=== PATIENT | male | born 1975 | race Caucasian/White ===

== ENCOUNTER 2017-05-26 09:50 | Inpatient (IN) | payer OTHER ==
[~2017-05-26] VITALS: Ht 182.9 cm; Wt 98.8 kg
[2017-05-26 10:20] LABS: BASOPHILS % (AUTO) 0.2 % (0-1); EOSINOPHILS # (AUTO) 0.2 X10'3 (0-0.9); EOSINOPHILS % (AUTO) 2.3 % (0-6); LYMPHOCYTES # (AUTO) 1.3 X10'3 (1.1-4.8); LYMPHOCYTES % (AUTO) 14.6 % (21-51); MEAN CORPUSCULAR HEMOGLOBIN 30.7 PG (27.0-31.0); MEAN CORPUSCULAR HGB CONC 34.3 % (33.0-36.5); MEAN CORPUSCULAR VOLUME 89.7 FL (78-98); MEAN PLATELET VOLUME 8.9 FL (7.4-10.4); MONOCYTES # (AUTO) 0.7 X10'3 (0-0.9); MONOCYTES % (AUTO) 8.1 % (2-12); NEUTROPHILS # (AUTO) 6.8 X10'3 (1.8-7.7); NEUTROPHILS % (AUTO) 74.8 % (42-75); PRE OP HEMOGLOBIN 17.1 g/dL (14.0-17.9); PRE OP PLATELET COUNT 207 X10'3 (140-440); RED BLOOD COUNT 5.58 X10'6 (4.70-6.10)
[2017-05-26 10:30] LABS: PRE OP INR 0.9 INR; PRE OP PROTIME 9.8 SECONDS (9.0-12.0)
[2017-05-26 10:32] LABS: CLARITY,URINE CLEAR (Clear); COLOR,URINE YELLOW (Yellow); GLUCOSE, URINE NEGATIVE (Neg); KETONES,URINE NEGATIVE (Neg); LEUKOCYTE ESTERASE ,URINE NEGATIVE (Neg); NITRITES, URINE NEGATIVE (Neg); OCCULT BLOOD,URINE NEGATIVE (Neg); PROTEIN,URINE NEGATIVE (Neg); UROBILINOGEN,URINE 0.2 E.U/dL (0.2-1.0)
[2017-05-26 10:36] LABS: UA COLLECTION TYPE NON-SPECIFIED
[2017-05-26 10:37] LABS: ALBUMIN 4.1 G/DL (3.4-5.0); ALKALINE PHOSPHATASE 78 IU/L (46-116); BLOOD UREA NITROGEN 13 MG/DL (7-18); BUN/CREATININE RATIO 12.9 (5.4-32.0); CALCIUM 9.1 MG/DL (8.5-10.1); CHLORIDE 106 MMOL/L (99-107); CREATININE 1.01 MG/DL (0.60-1.10); PRE OP ANION GAP 12 (8-16); PRE OP AST 28 U/L (10-37); PRE OP BILIRUB, TOTAL 0.5 MG/DL (0.0-1.0); PRE OP GLUCOSE 96 MG/DL (70-104); PRE OP POTASSIUM 3.9 MMOL/L (3.4-5.1); PRE OP SODIUM 143 MMOL/L (135-145); TOTAL CARBON DIOXIDE 25.3 MMOL/L (24-32); TOTAL PROTEIN 8.2 G/DL (6.4-8.2); eGFR 81 ML/MIN
[2017-05-26 10:39] LABS: PRE OP ALT 86 U/L (30-65)
[2017-05-26] MEDS ORDERED: HYDR-3972 PO (13:51)
[2017-05-26] MEDS ORDERED: ALBU8.5H8 INH (13:51)
[2017-06-05] VITALS (19 sets, daily range): BP systolic 90–142; BP diastolic 47–88
[2017-06-05] MEDS ORDERED: ringers solution, lacted 1,000 ML IV SCH ×2 (05:00→08:28)
[2017-06-05] MEDS ORDERED: cefazolin/dext.iso 2gm/50ml 50 ML IV ONE (05:30)
[2017-06-05] MEDS ORDERED: celeCOXIB 100mg capsule PO ONE ×2 (05:30→06:10)
[2017-06-05] MEDS ORDERED: albuterol 2.5 MG/3 ML nebule NEB ONE (05:30)
[2017-06-05] MEDS ORDERED: metoclopramide 5 mg/ml inj IV ONE (05:30)
[2017-06-05] MEDS ORDERED: oxyCODONE SR 10mg (sust. release) tab PO ONE (05:30)
[2017-06-05] MEDS ORDERED: acetaminophen 325mg tablet PO ONE (05:30)
[2017-06-05] MEDS ORDERED: tranexamic acid inj. 1,000 MG in normal saline 100ml IV soln 90 ML IV ONE (05:30)
[2017-06-05] MEDS ORDERED: gabapentin 300mg capsule PO ONE (05:30)
[2017-06-05] MEDS ORDERED: famotidine 20mg tablet PO ONE (05:30)
[2017-06-05] MEDS ORDERED: vancomycin inj 1,500 MG in normal saline 300ml IV soln IV ONE (05:30)
[2017-06-05] MEDS ORDERED: LIDOcaine 1% (10mg/ml) 2ml vial ONE (06:10)
[2017-06-05] MEDS ORDERED: epiNEPHrine 1 mg/ml inj ONE (06:52)
[2017-06-05] MEDS ORDERED: ketorolac trometh. 30mg/ml inj. ONE (06:52)
[2017-06-05] MEDS ORDERED: cloNIDine hcl/PF 100mcg/ml inj ONE (06:52)
[2017-06-05] MEDS ORDERED: ROPIVAcaine 0.5% (5mg/ml) 30ml vial ONE ×2 (06:52→07:41)
[2017-06-05] MEDS ORDERED: vancomycin 1,000mg inj ONE (06:52)
[2017-06-05] MEDS ORDERED: bisacodyl 10mg suppository rectal RC PRN (07:10)
[2017-06-05] MEDS ORDERED: diphenhydrAMINE 25mg capsule PO PRN ×2 (07:10)
[2017-06-05] MEDS ORDERED: ondansetron/PF 4mg/2ml inj IV PRN ×3 (07:10→09:55)
[2017-06-05] MEDS ORDERED: acetaminophen 325mg tablet PO PRN (07:10)
[2017-06-05] MEDS ORDERED: albuterol 2.5 MG/3 ML nebule NEB PRN (07:15)
[2017-06-05] MEDS ORDERED: fentaNYL/PF 50MCG/1 ML 2ML syringe ONE (07:16)
[2017-06-05] MEDS ORDERED: MIDAZolam 1mg/ml 10ml vial ONE (07:16)
[2017-06-05] MEDS ORDERED: morphine /PF 1mg/ml 10ml inj. ONE (07:23)
[2017-06-05] MEDS ORDERED: oxyCODONE/APAP 10/325mg tablet PO SCH (08:00)
[2017-06-05] MEDS ORDERED: cefazolin/dext.iso 2gm/50ml 50 ML IV SCH (08:00)
[2017-06-05] MEDS ORDERED: morphine 4 MG/ML inj SYRINge IV PRN ×2 (08:30)
[2017-06-05] MEDS ORDERED: proCHLORperazine 10 MG/2 ml inj IV PRN (08:30)
[2017-06-05] MEDS ORDERED: meperidine/PF 50mg/ml syringe IV PRN ×3 (08:30)
[2017-06-05] MEDS ORDERED: naloxone 2mg/2ml inj 2 MG in normal saline 500ml IV soln 500 ML IV PRN (09:54)
[2017-06-05] MEDS ORDERED: diphenhydrAMINE 50 mg/ml inj IV PRN (09:55)
[2017-06-05] MEDS: gabapentin 300mg capsule PO SCH ×3 (11:26→20:45)
[2017-06-05] MEDS: ascorbic acid 500mg tablet PO SCH ×2 (11:26→20:45)
[2017-06-05] MEDS: multivitamins, therapeutics tablet PO SCH (11:26)
[2017-06-05] MEDS: aspirin 325mg tablet PO SCH (11:27)
[2017-06-05] MEDS ORDERED: ceFAZolin inj. 2,000 MG in dextrose 5%-water 50 ML IV SCH (12:14)
[2017-06-05] MEDS: ceFAZolin inj. 2,000 MG in dextrose 5%-water 100 ML IV SCH ×2 (15:48→23:51)
[2017-06-05] MEDS: potassium cl 20mEq in 1/2 NS 1,000 ML IV SCH ×3 (15:48→23:06)
[2017-06-05] MEDS: oxyCODONE/APAP 10/325mg tablet PO PRN ×2 (16:38→20:48)
[2017-06-05] MEDS: sennosides 8.6mg tablet PO SCH (20:45)
[2017-06-05] MEDS: MORPHINE 2MG in 2ml NS syringe IV PRN (23:51)
[2017-06-06] MEDS: oxyCODONE/APAP 10/325mg tablet PO PRN ×7 (03:42→23:35)
[2017-06-06 05:11] LABS: BASOPHILS % (AUTO) 0.2 % (0-1); EOSINOPHILS # (AUTO) 0.2 X10'3 (0-0.9); EOSINOPHILS % (AUTO) 1.7 % (0-6); HEMATOCRIT 40.7 % (42.0-52.0); HEMOGLOBIN 14.1 g/dl (14.0-17.9); LYMPHOCYTES # (AUTO) 1.3 X10'3 (1.1-4.8); MEAN CORPUSCULAR HEMOGLOBIN 31.3 PG (27.0-31.0); MEAN CORPUSCULAR HGB CONC 34.7 % (33.0-36.5); MEAN CORPUSCULAR VOLUME 90.3 FL (78-98); MEAN PLATELET VOLUME 8.9 FL (7.4-10.4); MONOCYTES # (AUTO) 0.7 X10'3 (0-0.9); MONOCYTES % (AUTO) 6.3 % (2-12); NEUTROPHILS # (AUTO) 8.2 X10'3 (1.8-7.7); NEUTROPHILS % (AUTO) 78.8 % (42-75); PLATELET COUNT 163 X10'3 (140-440); RED BLOOD COUNT 4.51 X10'6 (4.70-6.10); RED CELL DISTRIBUTION WIDTH 13.8 % (11.5-14.5); WHITE BLOOD COUNT 10.4 X10'3 (4.5-11.0)
[2017-06-06] MEDS: MORPHINE 2MG in 2ml NS syringe IV PRN (05:24)
[2017-06-06 05:37] LABS: ANION GAP 8 (8-16); CHLORIDE 108 MMOL/L (99-107); POTASSIUM 3.8 MMOL/L (3.5-5.1); SODIUM 143 MMOL/L (135-145); TOTAL CARBON DIOXIDE 26.6 MMOL/L (24-32)
[2017-06-06] MEDS: gabapentin 300mg capsule PO SCH ×3 (07:27→21:16)
[2017-06-06] MEDS: multivitamins, therapeutics tablet PO SCH (07:28)
[2017-06-06] MEDS: ascorbic acid 500mg tablet PO SCH ×2 (07:28→21:17)
[2017-06-06] MEDS: aspirin 325mg tablet PO SCH (07:29)
[2017-06-06] MEDS: magnesium hydroxide 30ml (MOM) UD suspension PO PRN (07:31)
[2017-06-06] MEDS ORDERED: ASPI-1 PO (09:44)
[2017-06-06] MEDS: morphine 4 MG/ML inj SYRINge IV PRN ×2 (17:54→22:31)
[2017-06-06 18:00] VITALS: BP 130/95
[2017-06-06] MEDS: sennosides 8.6mg tablet PO SCH (21:17)
[2017-06-06] MEDS: celeCOXIB 100mg capsule PO SCH (21:17)
[2017-06-06 23:00] VITALS: BP 141/87
[2017-06-07] MEDS: morphine 4 MG/ML inj SYRINge IV PRN ×2 (02:39→06:53)
[2017-06-07] MEDS: oxyCODONE/APAP 10/325mg tablet PO PRN ×2 (04:10→08:44)
[2017-06-07 05:04] LABS: BASOPHILS % (AUTO) 0.3 % (0-1); EOSINOPHILS # (AUTO) 0.3 X10'3 (0-0.9); EOSINOPHILS % (AUTO) 3.1 % (0-6); HEMOGLOBIN 14.5 g/dl (14.0-17.9); LYMPHOCYTES % (AUTO) 22.5 % (21-51); MEAN CORPUSCULAR HEMOGLOBIN 31.4 PG (27.0-31.0); MEAN CORPUSCULAR HGB CONC 34.5 % (33.0-36.5); MEAN CORPUSCULAR VOLUME 91.2 FL (78-98); MONOCYTES % (AUTO) 11.7 % (2-12); NEUTROPHILS # (AUTO) 5.6 X10'3 (1.8-7.7); NEUTROPHILS % (AUTO) 62.4 % (42-75); PLATELET COUNT 173 X10'3 (140-440); RED CELL DISTRIBUTION WIDTH 13.7 % (11.5-14.5); WHITE BLOOD COUNT 8.9 X10'3 (4.5-11.0)
[2017-06-07 06:00] VITALS: BP 136/75
[2017-06-07] MEDS: ascorbic acid 500mg tablet PO SCH (07:02)
[2017-06-07] MEDS: gabapentin 300mg capsule PO SCH (07:02)
[2017-06-07] MEDS: celeCOXIB 100mg capsule PO SCH (07:02)
[2017-06-07] MEDS: multivitamins, therapeutics tablet PO SCH (07:02)
[2017-06-07] MEDS: magnesium hydroxide 30ml (MOM) UD suspension PO PRN (07:02)
[2017-06-07] MEDS: aspirin 325mg tablet PO SCH (08:49)
== END 2017-06-07 10:00 | disposition home or self-care (01) | DRG 470 ==
LOC: EDSTATUS 09:50 → PAS IN 06-05 05:35 → EDSTATUS 06-05 07:30 → ORTHO 4S 06-05 11:49
PROVIDERS: ADMIT Orthopaedic Surgery; ATTEND Orthopaedic Surgery
PROC: 8E0YXBZ Computer Assisted Procedure of Lower Extremity (ICD-10-PCS; 2017-06-05)
PROC: 0SRD0L9 Replacement of Left Knee Joint with Medial Unicondylar Synthetic Substitute, Cemented, Open Approach (ICD-10-PCS; principal; 2017-06-05 07:15)
DX: M17.12 Unilateral primary osteoarthritis, left knee (principal); G89.29 Other chronic pain; J45.909 Unspecified asthma, uncomplicated; M94.262 Chondromalacia, left knee; M19.92 Post-traumatic osteoarthritis, unspecified site; M77.9 Enthesopathy, unspecified; M54.9 Dorsalgia, unspecified; Z79.82 Long term (current) use of aspirin; Z79.899 Other long term (current) drug therapy
CPT/HCPCS: 36415; 71046; 73560; 80051; 80053; 81003; 85025; 85610; 85730; 86885; 86900; 86901; 87070; 94760; 97110; 97116; 97162; 97530; A6455; A7000; C1713; C1758; C1776; J0171; J0690; J0735; J1885; J2250; J2270; J2274; J2765; J2795; J3010; J3370; J3490; J7030; J7060; J7120

== ENCOUNTER 2018-05-15 09:43 | Inpatient (IN) | payer OTHER | END 2018-05-17 11:00 | disposition home or self-care (01) | LOC: PAS IN 09:43 → ORTHO 4S 16:45 | PROC: 0SPD0EZ Removal of Articulating Spacer from Left Knee Joint, Open Approach (ICD-10-PCS; principal; 2018-05-15 13:15) | PROC: 0SRD0EZ Replacement of Left Knee Joint with Articulating Spacer, Open Approach (ICD-10-PCS; 2018-05-15 13:15) | DX: T84.033A Mechanical loosening of internal left knee prosthetic joint, initial encounter (principal); D62 Acute posthemorrhagic anemia; Z96.652 Presence of left artificial knee joint ==

== ENCOUNTER 2020-06-23 06:06 | Day surgery (SDC) | payer BC ==
[2020-06-16 11:18] LABS: BASOPHILS % (AUTO) 0.4 % (0-1); EOSINOPHILS # (AUTO) 0.1 X10'3 (0-0.9); EOSINOPHILS % (AUTO) 0.9 % (0-6); LYMPHOCYTES # (AUTO) 1.5 X10'3 (1.1-4.8); LYMPHOCYTES % (AUTO) 23.8 % (21-51); MEAN CORPUSCULAR HEMOGLOBIN 34.7 PG (27.0-31.0); MEAN PLATELET VOLUME 9.3 FL (7.4-10.4); MONOCYTES # (AUTO) 0.6 X10'3 (0-0.9); NEUTROPHILS # (AUTO) 4.2 X10'3 (1.8-7.7); NEUTROPHILS % (AUTO) 65.9 % (42-75); PRE OP HEMATOCRIT 49.9 % (42.0-52.0); PRE OP HEMOGLOBIN 17.5 g/dL (14.0-17.9); PRE OP PLATELET COUNT 212 X10'3 (140-440); RED BLOOD COUNT 5.04 X10'6 (4.70-6.10); RED CELL DISTRIBUTION WIDTH 14.2 % (11.5-14.5)
[2020-06-16 11:23] LABS: PRE OP PROTIME 10.3 SECONDS (9.0-12.0)
[2020-06-16 11:32] LABS: ALBUMIN 3.5 G/DL (3.4-5.0); ALBUMIN/GLOBULIN RATIO 0.9 (1.1-1.5); ALKALINE PHOSPHATASE 74 IU/L (46-116); BLOOD UREA NITROGEN 11 MG/DL (7-18); BUN/CREATININE RATIO 6.9 (5.4-32.0); CALCIUM 8.3 MG/DL (8.5-10.1); CHLORIDE 103 MMOL/L (99-107); PRE OP ANION GAP 10 (8-16); PRE OP BILIRUB, TOTAL 0.7 MG/DL (0.0-1.0); PRE OP SODIUM 139 MMOL/L (135-145); TOTAL CARBON DIOXIDE 26.4 MMOL/L (24-32); TOTAL PROTEIN 7.4 G/DL (6.4-8.2); eGFR 47 ML/MIN
[2020-06-16 11:52] LABS: PRE OP ALT 79 U/L (30-65); PRE OP AST 65 U/L (10-37)
[2020-06-16 11:53] LABS: PRE OP GLUCOSE 126 MG/DL (70-104); PRE OP POTASSIUM 3.9 MMOL/L (3.4-5.1)
[2020-06-23] VITALS (8 sets, daily range): BP systolic 107–142; BP diastolic 57–89
[~2020-06-23] VITALS: Ht 182.9 cm; Wt 109.6 kg
[~2020-06-23 06:06] MED LIST: ALBU8.5H8 INH; FENO145T26 PO; LISI40TA13 PO; OMEP-50 PO; famotidine 20mg tablet PO ONE; ringers solution, lacted 1,000 ML IV SCH
[2020-06-23] MEDS: oxymetazoline 15 ML nasal spray NS SCH ×2 (06:37→08:42)
[2020-06-23] MEDS ORDERED: LIDOcaine 1% W/epiNEPHrine 1:100,000 20ml vial ONE (06:44)
[2020-06-23] MEDS ORDERED: cocaine 4% topical solution 4ml bottle ONE (06:44)
[2020-06-23] MEDS ORDERED: mupirocin 2% ointment 22GM ONE (06:44)
[2020-06-23] MEDS ORDERED: oxymetazoline 15 ML nasal spray NS ONE (06:45)
[2020-06-23] MEDS ORDERED: cefTAZidime 1gm inj ONE (06:45)
[2020-06-23] MEDS ORDERED: fentaNYL/PF 50MCG/1 ML 2ML syringe ONE (07:48)
[2020-06-23] MEDS ORDERED: midazolam 1 mg/ML 2ml injection ONE (07:48)
[2020-06-23] MEDS ORDERED: LIDOcaine 2% (20mg/ml) 5ml vial ONE (07:49)
[2020-06-23] MEDS ORDERED: propofol inj 20 ML IV ONE (07:49)
[2020-06-23] MEDS ORDERED: meperidine/PF 25mg/ml syringe IV PRN ×3 (08:00)
[2020-06-23] MEDS ORDERED: morphine 2 MG/ML inj. syringe IV PRN (08:00)
[2020-06-23] MEDS ORDERED: morphine 4 MG/ML inj SYRINge IV PRN (08:00)
[2020-06-23] MEDS ORDERED: ondansetron/PF 4mg/2ml inj IV PRN (08:00)
[2020-06-23] MEDS ORDERED: ringers solution, lacted 1,000 ML IV SCH (08:00)
[2020-06-23] MEDS ORDERED: hydrALAZINE 20mg/ml inj. IV PRN (08:00)
[2020-06-23] MEDS ORDERED: labetalol 5mg/ml 20ml inj. IV PRN (08:00)
[2020-06-23] MEDS ORDERED: sevoflurane 250ml liquid IH ONE (08:07)
[2020-06-23] MEDS ORDERED: dexamethasone sod phosphate 4mg/ml inj. ONE (09:19)
[2020-06-23] MEDS ORDERED: ondansetron/PF 4mg/2ml inj ONE (09:19)
[2020-06-23] MEDS ORDERED: metoprolol tartrate 1mg/ml inj IV ONE ×2 (09:19→09:29)
--- NOTE | 2020-06-23 09:30 | NUR ---
Received from OR via BED , accompanied by Anesthesiologist and report given by Anesthesiolgist. PATIENT WAKING UP, C/O OF PAIN AND NAUSEA SEE EMAR, V/S WNL, CSM INTACT, SCD ON, PIV TO RUE, COTTONOIDS BILAT SINUS.
[2020-06-23] MEDS ORDERED: salt irrigation nasal spray 45 ML SPRAY NS PRN (09:55)
--- NOTE | 2020-06-23 10:30 | NUR ---
PATIENT A&OX4, DENIES PAIN, V/S WNL, CSM INTACT, SCD OFF, PIV TO RUE D/C, COTTONOIDS D/C 30MIN AFTER ARRIVAL, I HAVE REVIEWED D/C INSTRUCTIONS WRITTEN PER DR FRAZIER AND GAVE PATIENT FIRST DOSE OF OINTMENT AND OCEAN SPRAY AND PATIENT HAS VERBALIZED UNDERSTANDING. PATIENT D/C HOME WITH ALL BELONGINGS AND GAVE TRANSPORT
[2020-06-23] MEDS ORDERED: phenylephrine 10mg/ml inj. ONE (11:11)
== END 2020-06-23 10:30 | disposition home or self-care (01) ==
LOC: PAS 06:06
PROVIDERS: ATTEND Otolaryngology
DX: J34.2 Deviated nasal septum (principal); J34.3 Hypertrophy of nasal turbinates; J34.89 Other specified disorders of nose and nasal sinuses; J45.990 Exercise induced bronchospasm; G47.33 Obstructive sleep apnea (adult) (pediatric); I10 Essential (primary) hypertension; K21.9 Gastro-esophageal reflux disease without esophagitis; Z20.822 Contact with and (suspected) exposure to COVID-19; Z79.01 Long term (current) use of anticoagulants; Z79.899 Other long term (current) drug therapy; Z96.652 Presence of left artificial knee joint; Z96.641 Presence of right artificial hip joint; Z87.891 Personal history of nicotine dependence; Z72.89 Other problems related to lifestyle
CPT/HCPCS: 30140; 30520; 36415; 80053; 82948; 85025; 85576; 85610; 85730; 87426; 93005; A6402; C9250; J0713; J1100; J2001; J2175; J2250; J2370; J2405; J2704; J3010; U0003; U0005; A4618; A7000; J3490; J7120

== ENCOUNTER 2022-05-06 05:34 | Day surgery (SDC) | payer BC, MEDICAID ==
[2022-04-29 16:08] LABS: BASOPHILS % (AUTO) 0.2 % (0-1); EOSINOPHILS # (AUTO) 0.1 X10'3 (0-0.9); LYMPHOCYTES # (AUTO) 1.4 X10'3 (1.1-4.8); LYMPHOCYTES % (AUTO) 13.2 % (21-51); MEAN CORPUSCULAR HEMOGLOBIN 31.5 PG (27.0-31.0); MEAN CORPUSCULAR HGB CONC 33.9 g/dL (33.0-36.5); MEAN CORPUSCULAR VOLUME 92.9 FL (78-98); MEAN PLATELET VOLUME 8.9 FL (7.4-10.4); MONOCYTES # (AUTO) 0.9 X10'3 (0-0.9); MONOCYTES % (AUTO) 8.2 % (2-12); NEUTROPHILS % (AUTO) 77.4 % (42-75); PRE OP HEMATOCRIT 47.6 % (42.0-52.0); PRE OP HEMOGLOBIN 16.2 g/dL (14.0-17.9); PRE OP PLATELET COUNT 215 X10'3 (140-440); RED BLOOD COUNT 5.13 X10'6 (4.70-6.10); RED CELL DISTRIBUTION WIDTH 15.3 % (11.5-14.5)
[2022-04-29 16:21] LABS: ALBUMIN 3.6 G/DL (3.4-5.0); ALKALINE PHOSPHATASE 56 IU/L (46-116); BLOOD UREA NITROGEN 14 MG/DL (7-18); BUN/CREATININE RATIO 10.7 (5.4-32.0); CALCIUM 8.4 MG/DL (8.5-10.1); CHLORIDE 107 MMOL/L (99-107); CREATININE 1.31 MG/DL (0.60-1.10); PRE OP ALT 33 U/L (30-65); PRE OP ANION GAP 9 (8-16); PRE OP AST 39 U/L (10-37); PRE OP BILIRUB, TOTAL 0.3 MG/DL (0.0-1.0); PRE OP GLUCOSE 101 MG/DL (70-104); PRE OP POTASSIUM 4.1 MMOL/L (3.4-5.1); PRE OP SODIUM 142 MMOL/L (135-145); TOTAL PROTEIN 7.1 G/DL (6.4-8.2); eGFR 58 ML/MIN
[~2022-05-06] VITALS: Ht 182.9 cm; Wt 123.4 kg
[2022-05-06] VITALS (11 sets, daily range): BP systolic 141–166; BP diastolic 98–116
[~2022-05-06 05:34] MED LIST changes: -ALBU8.5H8 INH; +FLO0.4C; -OMEP-50 PO; +OMEP20CA16 PO; +ceFAZolin inj. 3,000 MG in normal saline 100ml IV soln 100 ML IV ONE
[2022-05-06] MEDS ORDERED: BUPIVAcaine/PF 2.5 mg/ml (0.25%) 30ml vial ONE (06:53)
[2022-05-06] MEDS ORDERED: fentaNYL/PF 50MCG/1 ML 2ML syringe ONE (07:21)
[2022-05-06] MEDS ORDERED: midazolam 1 mg/ML 2ml injection ONE (07:22)
[2022-05-06] MEDS ORDERED: morphine 4 MG/ML inj SYRINge IV PRN (07:25)
[2022-05-06] MEDS ORDERED: ketorolac trometh. 30mg/ml inj. IV ONE (07:25)
[2022-05-06] MEDS ORDERED: morphine 2 MG/ML inj. syringe IV PRN (07:25)
[2022-05-06] MEDS ORDERED: ringers solution, lacted 1,000 ML IV SCH (07:25)
[2022-05-06] MEDS ORDERED: meperidine/PF 25mg/ml syringe IV PRN ×3 (07:25)
[2022-05-06] MEDS ORDERED: acetaminophen 1,000mg/100ml IV 100 ML IV PRN (07:25)
[2022-05-06] MEDS ORDERED: ondansetron/PF 4mg/2ml inj IV PRN (07:25)
[2022-05-06] MEDS ORDERED: hydrALAZINE 20mg/ml inj. IV PRN (07:25)
[2022-05-06] MEDS ORDERED: proCHLORperazine 10 MG/2 ml inj IV PRN (07:25)
[2022-05-06] MEDS ORDERED: propofol inj 20 ML IV ONE ×2 (07:47→07:57)
[2022-05-06] MEDS ORDERED: labetalol 20mg/4ml (5mg/ml) syringe IV ONE (07:47)
[2022-05-06] MEDS ORDERED: LIDOcaine 0.5% (5mg/ml) 50ml vial ONE (07:47)
[2022-05-06] MEDS ORDERED: morphine 4 MG/ML inj SYRINge ONE (07:57)
--- NOTE | 2022-05-06 08:09 | NUR ---
Received from OR via TIAN, accompanied by Anesthesiologist and report given by MANJIT Anesthesiologist. PATIENT WAKING UP, DENIES PAIN, V/S WNL, PIV 20G TO RAC, LEFT WRIST DRESSING C/D/I. ICE AND ELEVATED LUE. Addendum: 05/06/22 at 0837 by Giancarlo Mcdonough RN Amended: Links added.
[2022-05-06] MEDS: labetalol 20mg/4ml (5mg/ml) syringe IV PRN ×2 (08:26→08:41)
--- NOTE | 2022-05-06 09:19 | NUR ---
ALL DISCHARGE CRITERIA HAS BEEN MET. VSS, PAIN AT A TOLERABLE LEVEL, ABLE TO SAFELY AMBULATE AND TRANSFER SELF. IV TAKEN OUT WITHOUT ANY COMPLICATIONS. ALL DISCHARGE INSTRUCTIONS COVERED WITH PATIENT AND ALL QUESTIONS ANSWERED. PATIENT TAKEN OUT VIA WHEELCHAIR WITH ALL BELONGINGS TO PERSONAL VEHICLE WHERE FAMILY DROVE PATIENT HOME. Addendum: 05/06/22 at 0921 by Giancarlo Mcdonough RN Amended: Links added.
[2022-05-06] MEDS ORDERED: BUPIVAcaine/PF 5 mg/ml 10ml ONE (10:23)
== END 2022-05-06 09:19 | disposition home or self-care (01) ==
LOC: PAS 05:34
PROVIDERS: ATTEND Orthopaedic Surgery Hand Surgery
DX: M24.542 Contracture, left hand (principal); F41.9 Anxiety disorder, unspecified; M17.12 Unilateral primary osteoarthritis, left knee; G47.33 Obstructive sleep apnea (adult) (pediatric); I10 Essential (primary) hypertension; M47.816 Spondylosis without myelopathy or radiculopathy, lumbar region; K21.9 Gastro-esophageal reflux disease without esophagitis; Z96.652 Presence of left artificial knee joint; Z98.890 Other specified postprocedural states; Z72.89 Other problems related to lifestyle; Z87.891 Personal history of nicotine dependence; Z86.14 Personal history of Methicillin resistant Staphylococcus aureus infection; Z96.641 Presence of right artificial hip joint; Z79.899 Other long term (current) drug therapy
CPT/HCPCS: 26520; 36415; 80053; 82948; 85025; 93005; J0360; J0690; J1885; J2250; J2270; J2704; J3010; J3490; J7030; J7120; Z7506; Z7512; A4215